=== PATIENT | female | born 1975 | race Caucasian/White ===

== ENCOUNTER → 2016-10-09 | Outpatient (CLI) | payer OTHER ==
[~2016-10-09] MED LIST: METHACHOLINE KIT (J7674) INH ONE
== END ==
LOC: M CARPUL 14:48
PROVIDERS: ATTEND Nurse Practitioner Adult Health
DX: R05 Cough (principal); Z72.0 Tobacco use

== ENCOUNTER → 2017-07-21 | Outpatient (REF) | payer OTHER | LOC: M SFHCPLAZ 15:50 | PROVIDERS: ATTEND Nurse Practitioner Adult Health | DX: J02.9 Acute pharyngitis, unspecified (principal) ==

== ENCOUNTER → 2017-08-06 | Outpatient (CLI) | payer OTHER ==
--- NOTE | 2017-08-06 18:48 | REP ---
MRI lumbar spine without contrast: History: Contusion of the lower back and pelvis. Injury in a fall a month ago. Pain in the region of the coccyx. Comparison sacrum and coccyx views are from June 06, 2017. Technique: Sagittal and axial T1 and T2-weighted scans are acquired in the usual fashion with and without fat saturation. Sequences include spin echo, turbo spin-echo, and STIR imaging sequences. MRI findings: It should be noted that the coccyx is not included in the field of view of routine lumbar spine MRI study except on one of our sagittal photo checker images. There is no evidence of fracture or displacement. Presacral space is not widened on this one photo checker view. There is straightening of the normal lumbar lordosis. Lumbar vertebral body heights are preserved. Cortical and medullary bone signal intensity are normal. Conus medullaris is normal in position and appearance at L1. There is degenerative narrowing and desiccation visible at the L2-3 and L4-5 intervertebral discs. Normal caliber aorta is seen. No extra vertebral abnormality is observed. Axial and sagittal images taken at the L2-3 disc demonstrate mild diffuse disc bulging indenting the ventral margin of the thecal sac. No central canal stenosis is seen. No neural foraminal encroachment is noted. At the L3-4, there is no significant abnormality. At L4-5, there is again diffuse disc bulging. Mild ligamentum flavum and facet hypertrophy is present at L4-5. The thecal sac has a triangular configuration but no significant central canal stenosis is seen. There is increased T2 signal along the annulus of the disc in the left foraminal and left lateral segment where there is some diffuse bulging as well. No neural foraminal narrowing is seen however. At L5-S1, there is mild facet hypertrophy bilaterally. No disc protrusion is seen. No evidence of foraminal stenosis. Impression: Degenerative disc disease at L2-3 and L4-5. Osteoarthritic facet and ligamentum flavum hypertrophy L4-5 and L5-S1. Disc bulging at T2-3 and 4-5. No canal stenosis or significant neural foraminal narrowing seen. Signed by Pablo Arenas MD 08/07/2017 08:04 A
== END ==
LOC: M RAD 09:12
PROVIDERS: ATTEND Physician Assistant Surgical
DX: M51.26 Other intervertebral disc displacement, lumbar region (principal)

== ENCOUNTER 2018-02-24 08:08 | Emergency (ER) | payer OTHER | END 2018-02-24 09:29 | disposition home or self-care (01) | LOC: M ED 08:08 | DX: M25.562 Pain in left knee (principal); M54.30 Sciatica, unspecified side; N93.8 Other specified abnormal uterine and vaginal bleeding; Z87.891 Personal history of nicotine dependence; Z88.1 Allergy status to other antibiotic agents; Z88.7 Allergy status to serum and vaccine; Z91.040 Latex allergy status; Z79.899 Other long term (current) drug therapy | CPT/HCPCS: 73564 ==

== ENCOUNTER → 2018-03-02 | Outpatient (REF) | payer OTHER ==
[2018-03-02 15:58] LABS: BASO % 0.3 % (0.0-1.0); EOS # 0.4 10^3/uL (0.0-0.50); EOS % 4.1 % (0.0-3.0); HEMATOCRIT 41.2 % (36.0-47.0); HEMOGLOBIN 13.3 g/dl (12.0-15.5); IMMATURE GRANULOCYTE % 1.1 % (0-3.0); LYMPH # 1.6 10^3/uL (1.5-4.5); LYMPH % 17.4 % (24.0-44.0); MEAN CORPUSCULAR HEMOGLOBIN 29.4 pg (27.0-33.0); MEAN CORPUSCULAR HGB CONC 32.3 g/dl (32.0-36.5); MEAN CORPUSCULAR VOLUME 90.9 fl (80.0-96.0); MONO # 0.5 10^3/uL (0.0-0.8); MONO % 5.1 % (0.0-5.0); NEUTROPHILS # 6.8 10^3/uL (1.8-7.7); PLATELET COUNT, AUTOMATED 295 10^3/uL (150-450); RED BLOOD COUNT 4.53 10^6/uL (4.00-5.40); RED CELL DISTRIBUTION WIDTH 12.6 % (11.5-14.5); WHITE BLOOD COUNT 9.4 10^3/uL (4.0-10.0)
[2018-03-02 16:00] LABS: RHEUMATOID FACTOR QUANT < 10.0 IU/ML (<15.0)
[2018-03-02 16:00] LABS: URIC ACID 5.4 MG/DL (2.6-6.0)
[2018-03-05 00:20] LABS: ANTINUCLEAR ANTIBODIES DIRECT Negative (Negative); Lyme Disease IgG/IgM Antibodie <0.91 ISR (0.00-0.90); Lyme Disease IgM Ab Quantitati <0.80 index (0.00-0.79)
== END ==
LOC: M LABDRAW1 11:11
DX: M25.562 Pain in left knee (principal)
CPT/HCPCS: 84550

== ENCOUNTER 2018-03-04 10:15 | Outpatient (RCR) | payer OTHER | END 2018-03-17 | disposition home or self-care (01) | LOC: M PT 10:15 | DX: Z47.89 Encounter for other orthopedic aftercare (principal); M25.562 Pain in left knee; M54.32 Sciatica, left side | CPT/HCPCS: 97110 ==

== ENCOUNTER → 2018-06-08 | Outpatient (REF) | payer OTHER ==
[2018-06-08 15:51] LABS: BASO % 0.4 % (0.0-1.0); EOS # 0.4 10^3/uL (0.0-0.50); EOS % 4.1 % (0.0-3.0); HEMATOCRIT 36.5 % (36.0-47.0); HEMOGLOBIN 12.1 g/dl (12.0-15.5); IMMATURE GRANULOCYTE % 0.4 % (0-3.0); LYMPH % 18.5 % (24.0-44.0); MEAN CORPUSCULAR HGB CONC 33.2 g/dl (32.0-36.5); MEAN CORPUSCULAR VOLUME 90.6 fl (80.0-96.0); MONO # 0.6 10^3/uL (0.0-0.8); MONO % 5.9 % (0.0-5.0); NEUTROPHILS # 7.6 10^3/uL (1.8-7.7); NEUTROPHILS % 70.7 % (36.0-66.0); PLATELET COUNT, AUTOMATED 423 10^3/uL (150-450); RED BLOOD COUNT 4.03 10^6/uL (4.00-5.40); RED CELL DISTRIBUTION WIDTH 13.3 % (11.5-14.5); WHITE BLOOD COUNT 10.7 10^3/uL (4.0-10.0)
[2018-06-08 16:05] LABS: C REACTIVE PROTEIN QUANTITATIV 0.33 MG/DL (0.00-0.30)
[2018-06-08 16:32] LABS: ERYTHROCYTE SEDIMENTATION RATE 27 mm/hr (0-20)
== END ==
LOC: M LABDRAW1 15:15
DX: M79.662 Pain in left lower leg (principal)
CPT/HCPCS: 86140

== ENCOUNTER 2018-07-13 10:31 | Outpatient (RCR) | payer OTHER | END 2018-07-17 | LOC: M PT 10:31 | DX: S83.242A Other tear of medial meniscus, current injury, left knee, initial encounter (principal); X58.XXXA Exposure to other specified factors, initial encounter; Y92.9 Unspecified place or not applicable; Y93.9 Activity, unspecified | CPT/HCPCS: 97010 ==

== ENCOUNTER 2018-07-22 11:48 | Outpatient (RCR) | payer OTHER ==
[~2018-07-22 11:48] MED LIST changes: +DULO1CAP3; +GABA600T4; -METHACHOLINE KIT (J7674) INH ONE; +NABU-119; +NORCOTAB PO; +ZOLP10TA2
== END 2018-08-17 ==
LOC: M PT 11:48
PROVIDERS: ATTEND Orthopaedic Surgery
DX: Z47.89 Encounter for other orthopedic aftercare (principal); Z98.890 Other specified postprocedural states; M25.562 Pain in left knee

== ENCOUNTER → 2018-11-25 | Outpatient (REF) | payer OTHER ==
[~2018-11-25] MED LIST changes: +HYDR-3715 PO; -NORCOTAB PO
[2018-11-25 18:24] LABS: HEMATOCRIT 44.1 % (36.0-47.0); HEMOGLOBIN 14.4 g/dl (12.0-15.5); MEAN CORPUSCULAR HEMOGLOBIN 29.8 pg (27.0-33.0); MEAN CORPUSCULAR HGB CONC 32.7 g/dl (32.0-36.5); MEAN CORPUSCULAR VOLUME 91.1 fl (80.0-96.0); PLATELET COUNT, AUTOMATED 365 10^3/uL (150-450); RED BLOOD COUNT 4.84 10^6/uL (4.00-5.40)
[2018-11-25 18:43] LABS: ALBUMIN 4.2 GM/DL (3.2-5.2); ALT/SGPT 19 U/L (12-78); BILIRUBIN,TOTAL 0.3 MG/DL (0.2-1.0); BLOOD UREA NITROGEN 12 MG/DL (7-18); CALCIUM LEVEL 10.2 MG/DL (8.5-10.1); CARBON DIOXIDE LEVEL 24 MEQ/L (21-32); CHLORIDE LEVEL 110 MEQ/L (98-107); GLOMERULAR FILTRATION RATE > 60.0 (>58); GLUCOSE, FASTING 71 MG/DL (70-100); SODIUM LEVEL 141 MEQ/L (136-145); THYROID STIMULATING HORMONE 0.615 uIU/ML (0.358-3.740); TOTAL PROTEIN 7.5 GM/DL (6.4-8.2)
== END ==
LOC: M SFHCPLAZ 15:22
PROVIDERS: ATTEND Nurse Practitioner Adult Health
DX: M54.32 Sciatica, left side (principal)

== ENCOUNTER → 2019-04-06 | Outpatient (CLI) | payer OTHER ==
[~2019-04-06] MED LIST changes: -DULO1CAP3; +DULO1CAP6; +MOBI4TAB PO; +PRED20TA PO; +RIZA10TA2; +SERT-155; +TOPI50TA9; +ZANA4TAB PO
--- NOTE | 2019-04-06 15:44 | REP ---
REASON FOR EXAM: Headache. COMPARISON EXAM: 05/30/2014. The ventricles and sulci are unchanged. There are no extra-axial fluid collections. There is no shift of the midline structures. The deep cerebral white matter is unchanged. There is no evidence of an acute intracranial hemorrhagic or nonhemorrhagic event. The posterior fossa is unchanged. The orbital and petrous structures are unchanged. The sella turcica, cavernous, and paracavernous structures are again seen to be within normal limits. There is no skull fracture. The imaged paranasal sinuses and mastoid air cells are clear. IMPRESSION: No change from 05/30/2014. No evidence of acute intracranial pathology. Electronically Signed by Kalyan Garcia DO 04/06/2019 04:36 P
== END ==
LOC: M RAD 13:32
PROVIDERS: ATTEND Nurse Practitioner Adult Health
DX: R51 Headache (principal)

== ENCOUNTER → 2019-05-04 | Outpatient (REF) | payer OTHER ==
[~2019-05-04] MED LIST changes: -MOBI4TAB PO; -PRED20TA PO; -RIZA10TA2; -SERT-155; -TOPI50TA9; -ZANA4TAB PO
[2019-05-04 13:30] LABS: BASO % 0.2 % (0.0-1.0); EOS # 0.1 10^3/uL (0.0-0.5); EOS % 1.3 % (0.0-3.0); HEMATOCRIT 41.8 % (36.0-47.0); HEMOGLOBIN 13.5 g/dl (12.0-15.5); LYMPH # 1.6 10^3/uL (1.5-5.0); LYMPH % 16.5 % (24.0-44.0); MEAN CORPUSCULAR HEMOGLOBIN 30.1 pg (27.0-33.0); MEAN CORPUSCULAR HGB CONC 32.3 g/dl (32.0-36.5); MEAN CORPUSCULAR VOLUME 93.1 fl (80.0-96.0); MONO # 0.5 10^3/uL (0.0-0.8); NEUTROPHILS # 7.4 10^3/uL (1.5-8.5); NEUTROPHILS % 76.7 % (36.0-66.0); PLATELET COUNT, AUTOMATED 361 10^3/uL (150-450); RED BLOOD COUNT 4.49 10^6/uL (4.00-5.40); WHITE BLOOD COUNT 9.6 10^3/uL (4.0-10.0)
[2019-05-04 13:44] LABS: ALBUMIN 4.1 GM/DL (3.2-5.2); ALT/SGPT 17 U/L (12-78); BILIRUBIN,TOTAL 0.3 MG/DL (0.2-1.0); BLOOD UREA NITROGEN 16 MG/DL (7-18); CALCIUM LEVEL 9.9 MG/DL (8.5-10.1); CARBON DIOXIDE LEVEL 23 MEQ/L (21-32); CHLORIDE LEVEL 110 MEQ/L (98-107); CREATININE FOR GFR 0.93 MG/DL (0.55-1.30); GLOMERULAR FILTRATION RATE > 60.0 (>58); GLUCOSE, FASTING 99 MG/DL (70-100); LIPASE 118 U/L (73-393); MAGNESIUM LEVEL 2.1 MG/DL (1.8-2.4); POTASSIUM SERUM 3.7 MEQ/L (3.5-5.1); SODIUM LEVEL 141 MEQ/L (136-145); TOTAL PROTEIN 7.1 GM/DL (6.4-8.2)
== END ==
LOC: M SFHCPLAZ 10:46
PROVIDERS: ATTEND Family Medicine
DX: K52.9 Noninfective gastroenteritis and colitis, unspecified (principal)

== ENCOUNTER 2019-05-23 10:18 | Emergency (ER) | payer OTHER ==
[~2019-05-23] VITALS: Ht 167.6 cm; Wt 74.8 kg
[2019-05-23 10:19] VITALS: BP 115/65
[2019-05-23] MEDS ORDERED: RIZA10TA2 (10:26)
[2019-05-23] MEDS ORDERED: SERT50TA29 (10:26)
[2019-05-23] MEDS ORDERED: TOPI50TA9 (10:26)
[2019-05-23] MEDS ORDERED: KETOROLAC 60 MG/2 ML VIAL (J1885) IM ONE (10:45)
--- NOTE | 2019-05-23 11:08 | REP ---
Lumbar spine five views: Comparison is the lumbar spine MRI dated 08/06/2017. Vertebral body heights, interspacing alignment are normal. There is no spondylolysis or spondylolisthesis. The pedicles are unremarkable. The facet and sacroiliac articulations are unremarkable. Impression: Essentially negative lumbar spine. Electronically Signed by Jaiden Gallardo MD 05/23/2019 11:00 A
[2019-05-23] MEDS ORDERED: ZANA4TAB PO (11:36)
[2019-05-23] MEDS ORDERED: MOBI4TAB PO (11:36)
[2019-05-23] MEDS ORDERED: PRED20TA PO (11:37)
== END 2019-05-23 11:52 | disposition home or self-care (01) ==
LOC: M ED 10:18
DX: M54.5 Low back pain (principal); Z87.891 Personal history of nicotine dependence; Z88.1 Allergy status to other antibiotic agents; Z88.7 Allergy status to serum and vaccine; Z91.040 Latex allergy status; Z79.899 Other long term (current) drug therapy
CPT/HCPCS: 72110; 96372; 99284; J1885

== ENCOUNTER → 2020-10-02 | Outpatient (REF) | payer OTHER ==
[~2020-10-02] MED LIST changes: +MOBI4TAB PO; -NABU-119; +NABU-53; +PRED20TA PO; +RIZA10TA2; +SERT50TA29; +TOPI50TA9; +ZANA4TAB PO
[2020-10-02 14:29] LABS: HEMOGLOBIN 13.2 g/dl (12.0-15.5); MEAN CORPUSCULAR HEMOGLOBIN 29.3 pg (27.0-33.0); MEAN CORPUSCULAR HGB CONC 31.4 g/dl (32.0-36.5); MEAN CORPUSCULAR VOLUME 93.1 fl (80.0-96.0); PLATELET COUNT, AUTOMATED 365 10^3/uL (150-450); RED BLOOD COUNT 4.51 10^6/uL (4.00-5.40); WHITE BLOOD COUNT 10.3 10^3/uL (4.0-10.0)
[2020-10-02 14:45] LABS: ALBUMIN 3.5 GM/DL (3.2-5.2); ALT/SGPT 15 U/L (12-78); BILIRUBIN,TOTAL 0.1 MG/DL (0.2-1.0); BLOOD UREA NITROGEN 13 MG/DL (7-18); CALCIUM LEVEL 9.6 MG/DL (8.5-10.1); CARBON DIOXIDE LEVEL 28 MEQ/L (21-32); CHLORIDE LEVEL 106 MEQ/L (98-107); CHOLESTEROL LEVEL 164 MG/DL (<200); CHOLESTEROL RISK RATIO 3.094 (<5); CREATININE FOR GFR 0.73 MG/DL (0.55-1.30); FERRITIN 15 NG/ML (8-252); GLOMERULAR FILTRATION RATE > 60.0 (>58); GLUCOSE, FASTING 64 MG/DL (70-100); HDL CHOLESTEROL 53 MG/DL (>40); IRON (FE) 74 UG/DL (50-170); LDL CHOLESTEROL 84 MG/DL (<100); NON-HDL-C 111 MG/DL; PERCENT SATURATION 19.1 % (13.2-45.0); POTASSIUM SERUM 4.1 MEQ/L (3.5-5.1); RHEUMATOID FACTOR QUANT < 10.0 IU/ML (<15.0); SODIUM LEVEL 139 MEQ/L (136-145); TOTAL IRON BINDING CAPACITY 388 UG/DL (250-450); TOTAL PROTEIN 6.9 GM/DL (6.4-8.2); TRIGLYCERIDES LEVEL 133 MG/DL (<150)
[2020-10-02 15:07] LABS: ERYTHROCYTE SEDIMENTATION RATE 7 mm/hr (0-20)
[2020-10-03 23:36] LABS: ANTINUCLEAR ANTIBODIES DIRECT Negative (Negative); CYCLIC CITRULLINATED PEPTIDE 4 units (0-19)
== END ==
LOC: M SFHCPLAZ 11:30
PROVIDERS: ATTEND Nurse Practitioner Adult Health
DX: M89.8X9 Other specified disorders of bone, unspecified site (principal); Z00.00 Encounter for general adult medical examination without abnormal findings; Z13.220 Encounter for screening for lipoid disorders; Z13.29 Encounter for screening for other suspected endocrine disorder; R20.9 Unspecified disturbances of skin sensation

== ENCOUNTER → 2020-10-31 | Outpatient (REF) | payer OTHER | LOC: M SFHCPLAZ 09:46 | PROVIDERS: ATTEND Physician Assistant | DX: J06.9 Acute upper respiratory infection, unspecified (principal) ==

== ENCOUNTER → 2020-11-07 | Outpatient (CLI) | payer OTHER | LOC: M LABSMTC 12:19 | PROVIDERS: ATTEND Family Medicine | DX: Z20.822 Contact with and (suspected) exposure to COVID-19 (principal) | CPT/HCPCS: C9803; U0003 ==

== ENCOUNTER → 2022-08-01 | Outpatient (REF) | payer OTHER ==
[~2022-08-01] MED LIST changes: -NABU-53; +NABU-73
== END ==
LOC: M LAB REF 16:27
PROVIDERS: ATTEND Physician Assistant
DX: B34.9 Viral infection, unspecified (principal)